=== PATIENT | male | born 1950 | race Caucasian/White ===

== ENCOUNTER 2020-12-29 07:59 | Day surgery (SDC) | payer MEDICARE, BC ==
[~2020-12-29] VITALS: Ht 177.8 cm; Wt 107.8 kg
[~2020-12-29 07:59] MED LIST: ALEVE 220MG220 MG PO; ATACAND4 MG PO; ELIQUIS 5MG PO; FERROUS SU325 MG/TAB PO; FOLIC ACID 40400 MCG PO; LEXAPRO20 MG PO; MOTRIN 200200 MG/TAB PO; NASACORT OTC NS; NORCO 325 MG-51 TAB PO; ROXICODONE 55 MG/TAB PO; SENOKOT S 50 MG1 TAB PO; TYLENOL COLD M240 M1 PO; TYLENOL PM EXTR1 TA1 PO; VITAMIN C500 MG PO; WELLBUTRIN XL300 M1 PO
[2020-12-29] MEDS ORDERED: NORCO 325 MG-51 TAB PO ×2 (08:52→10:22)
[2020-12-29] MEDS ORDERED: FLONASEALLERGY NS (08:53)
[2020-12-29] MEDS ORDERED: VITAMIN D31000 I1 PO (08:54)
[2020-12-29] MEDS ORDERED: SINGULAIR 110 MG/TAB PO (08:57)
--- NOTE | 2020-12-29 09:04 | NUR ---
TO RM 2 - CALL LIGHT IN REACH
[2020-12-29 10:25] VITALS: BP 110/73; PULSE 70; TEMP 98.2
--- NOTE | 2020-12-29 10:25 | NUR ---
TO RM 2 PER CART FROM PACU FOLLOWING A KNEE MANIPULATION. TALKING WITH STAFF AND TEXTING . DENIES PAIN OR DISCOMFORT. DENIES N/V.
[2020-12-29 10:40] VITALS: BP 110/66; PULSE 64
--- NOTE | 2020-12-29 10:40 | NUR ---
RECEIVED APPLE JUICE AND MUFFIN. SITTING UP EATING AND TEXTING . ICE OVER L KNEE .
[2020-12-29 10:55] VITALS: BP 103/55; PULSE 66
--- NOTE | 2020-12-29 10:55 | NUR ---
ATE 100% AND TOLERATED WELL.
--- NOTE | 2020-12-29 11:10 | NUR ---
RECEIVED DISCHARGE INSTRUCTIONS AND VERBALIZED UNDERSTANING DISCONTINUED IV AND INT- CATHETER INTACT. PATIENT GETTING DRESSED.
--- NOTE | 2020-12-29 11:30 | NUR ---
AMBULTED OUT ACCOMPANIED BY NURSING STAFF TO PRIVATE CAR IN CARE OF .
== END 2020-12-29 11:35 | disposition home or self-care (01) ==
LOC: SDCO 07:59
DX: M25.60 Stiffness of unspecified joint, not elsewhere classified (principal); Z96.652 Presence of left artificial knee joint; Z86.73 Personal history of transient ischemic attack (TIA), and cerebral infarction without residual deficits; I48.92 Unspecified atrial flutter; M19.90 Unspecified osteoarthritis, unspecified site; Z91.011 Allergy to milk products; Z79.01 Long term (current) use of anticoagulants; Z88.8 Allergy status to other drugs, medicaments and biological substances
CPT/HCPCS: J1885; J2405; J2704; J3010; J7120

== ENCOUNTER 2021-10-05 12:12 | Inpatient (IN) | payer MEDICARE, BC ==
[~2021-10-05] VITALS: Ht 177.8 cm; Wt 102.3 kg
[2021-10-05] VITALS (7 sets, daily range): BP systolic 97–124; BP diastolic 66–75; PULSE 61–72; TEMP 97.6–98.6
[~2021-10-05 12:12] MED LIST changes: +FLONASEALLERGY NS; +SINGULAIR 110 MG/TAB PO; +VITAMIN D31000 I1 PO
[2021-10-05 13:02] LABS: BASO % 0.3 % (0.0-2.0); EOS % 0.1 % (0-4.0); GRAN # 8.6 K/mm3 (1.4-6.5); GRAN % 76.8 % (42.2-75.2); HEMATOCRIT 50.5 % (42.0-52.0); HEMOGLOBIN 17.4 g/dl (13.5-18.0); LYMPH # 1.4 K/mm3 (1.2-3.4); LYMPH % 12.8 % (20.0-51.0); MEAN CELL VOLUME 100 fl (80.0-100.0); MEAN CORPUSCULAR HEMOGLOBIN 34 pg (27.0-31.0); MEAN CORPUSCULAR HGB CONC 35 g/dl (33.0-37.0); MEAN PLATELET VOLUME 9.4 fl (7.4-10.4); MONO % 8.9 % (1.7-9.3); PLATELET COUNT 207 K/mm3 (130-400); RED BLOOD COUNT 5.06 M/mm3 (4.20-5.60); REDCELL DISTRIBUTION WIDTH-CV 12.3 % (11.5-14.5)
[2021-10-05 13:18] LABS: ALANINE AMINOTRANSFERASE 31 U/L (0-55); ALBUMIN 3.7 gm/dL (3.4-4.8); ALKALINE PHOSPHATASE 53 U/L (40-150); ANION GAP 10 mmol/L (7-16); AST,SGOT 15 U/L (5-34); BILIRUBIN,TOTAL 1.7 mg/dL (0.2-1.2); BLOOD UREA NITROGEN 24 mg/dL (8-26); CALCIUM 8.9 mg/dL (8.4-10.2); CARBON DIOXIDE 20 mmol/L (23-31); CHLORIDE 111 mmol/L (98-107); CREATININE, serum 1.01 mg/dL (0.72-1.25); GLUCOSE 106 mg/dL (70-99); POTASSIUM 4.4 mmol/L (3.5-4.5); SODIUM 141 mmol/L (136-145); TOTAL PROTEIN 6.5 gm/dL (6.2-8.1)
[2021-10-05 13:26] LABS: TROPONIN-I < 0.010 ng/mL (0.00-0.033)
[2021-10-05] MEDS ORDERED: FLOMAX 0.40.4 MG/CAP PO (13:38)
[2021-10-05] MEDS ORDERED: ASPIRIN 81M81 MG/TA2 PO (13:39)
--- NOTE | 2021-10-05 18:02 | NUR ---
PT RECEIVED ON FLOOR. POST OP VITAL SIGNS INITIATED. ADMISSION ASSESSMENT, ALLERGIES, MED REC, AND PHARMACY REVIEWED/COMPLETED. PT ALERT AND ORIENTED. PT HAS CLEAR LUNGS TO AUSCULTATION. 3+ PITTING EDEMA NOTED IN BILATERAL LOWER EXTREMITIES. SOME GENERALIZED BRUISING NOTED OVER BILATERAL ARMS. PT DRESSING CLEAN, DRY, INTACT. CAP REFILL <3S. PT FEET COOL TO TOUCH, PULSES 2+ BILATERALLY. PT ENDOSCOPY TECHNICAN EQUAL, RADIAL PULSE 2+ BILATERALLY. PT AT BEDSIDE, SECURITY CODE GIVEN FOR FUTURE UPDATES.
--- NOTE | 2021-10-05 18:04 | NUR ---
STATES CANNOT GET FLU VACCINE UNTIL APPROXIMATELY MONDAY. HAD B-12, DEXAMETHASONE, CANTALOG INJECTIONS IN [place] AND WAS INSTRUCTED TO WAIT 7 DAYS FOR FLU AND 10 DAYS FOR COVID BOOSTER. INJECTIONS RECEIVED September.
--- NOTE | 2021-10-05 23:47 | NUR ---
ALERT AND OX4. DENIES SOA, CHEST PAIN OR DIZZY. SOTOLO INITATION- EKG ORDERED AFTER 1ST DOSE GIVEN. NO SIDE EFFECTS REPORTED. TELE-NSR. RT AC FLUSHED. SCD FOR VTE. RT ANKLE EDEMA ELEVATED. DSG TO LT UPPER CHEST, C/D/I. CALL LIGHT WI REACH.
[2021-10-06 00:10] VITALS: BP 92/62; PULSE 58; TEMP 97.5
[2021-10-06 04:38] VITALS: BP 96/61; PULSE 63; TEMP 98
--- NOTE | 2021-10-06 05:58 | NUR ---
RESTED THROUGH THE NIGHT WITHOUT INCIDENT. REMAINS TO BE NSR ON TELE. NEEDS MET.
[2021-10-06 07:39] LABS: BASO % 0.2 % (0.0-2.0); EOS % 0.2 % (0-4.0); GRAN # 7.8 K/mm3 (1.4-6.5); GRAN % 78.2 % (42.2-75.2); HEMOGLOBIN 15.3 g/dl (13.5-18.0); LYMPH # 1.2 K/mm3 (1.2-3.4); LYMPH % 12.4 % (20.0-51.0); MEAN CELL VOLUME 101 fl (80.0-100.0); MEAN CORPUSCULAR HEMOGLOBIN 34 pg (27.0-31.0); MEAN CORPUSCULAR HGB CONC 34 g/dl (33.0-37.0); MEAN PLATELET VOLUME 9.5 fl (7.4-10.4); MONO # 0.8 K/mm3 (0.1-0.6); MONO % 8.1 % (1.7-9.3); PLATELET COUNT 191 K/mm3 (130-400); RED BLOOD COUNT 4.46 M/mm3 (4.20-5.60); REDCELL DISTRIBUTION WIDTH-CV 12.5 % (11.5-14.5)
[2021-10-06 08:00] LABS: ALBUMIN 3.2 gm/dL (3.4-4.8); BILIRUBIN,TOTAL 2.1 mg/dL (0.2-1.2); CALCIUM 8.4 mg/dL (8.4-10.2); CREATININE, serum 0.86 mg/dL (0.72-1.25); POTASSIUM 4.3 mmol/L (3.5-4.5); TOTAL PROTEIN 5.6 gm/dL (6.2-8.1)
[2021-10-06 08:47] VITALS: BP 119/61; PULSE 63; TEMP 97.4
--- NOTE | 2021-10-06 10:48 | NUR ---
PT ALERT AND ORIENTED. PT ABLE TO AMBULATE INDEPENDENTLY IN ROOM. PT HAS DIMINISHED LUNG SOUNDS AUSCULTATED IN LEFT LOWER LOBE. PT HAS ACTIVE BOWEL SOUNDS. DENIES PAIN AT THIS TIME. PT DRESSING ON CHEST CLEAN, DRY, INTACT. PT HAS 2+ PITTING EDEMA, PT STATES BETTER THAN YESTERDAY. PT PRESENT AT BEDSIDE. PT SOTALOL GIVEN PER CARDIOLOGY AND HOSPITALIST ORDERS. SOCKS PROVIDED TO PT, NO OTHER NEEDS EXPRESSED AT THIS TIME.
--- NOTE | 2021-10-06 10:58 | NUR ---
Boss Miner met with patient to discuss discharge planning. Patient lives in [place] with his , Viviana (ph#[phone]) who is at bedside. Patient sees Dr. Sheriff for primary care and obtains medications from [facility] in [place] with no difficulties. Patient uses a CPAP and no other DME. Patient reports independence with ADLS and plans to return home upon discharge. Patient has Advance Directives in EMR which designate his , Viviana. PT/OT ordered for patient. Discharge Plan: Home
[2021-10-06 11:53] VITALS: BP 114/62; PULSE 56; TEMP 98
--- NOTE | 2021-10-06 12:27 | NUR ---
Initial visit; Patient and his thanked Head Animal Trainer for looking in on them and offering God's blessings to Olegario, visiting and wishing him well and God's blessings.
[2021-10-06 16:00] VITALS: BP 93/68; PULSE 55; TEMP 98.1
--- NOTE | 2021-10-06 17:21 | NUR ---
PT CONTINUING ON PLAN OF CARE. PT HAD UNEVENTFUL DAY, ABLE TO AMBULATE INDEPENDENTLY. VISITED THIS SHIFT. NO SIGNIFICANT CHANGES NOTED IN PATIENT STATUS THIS SHIFT. PT DENIED PAIN THIS SHIFT.
[2021-10-06 21:06] VITALS: BP 118/65; PULSE 55; TEMP 98
[2021-10-07 01:06] VITALS: BP 98/60; PULSE 51; TEMP 97.9
[2021-10-07 04:19] VITALS: BP 98/60; PULSE 50; TEMP 97.9
--- NOTE | 2021-10-07 05:47 | NUR ---
RESTED THROUGH THE NIGHT WITHOUTINCIDENT. NO CHEST PAIN OR S/S REPORTED OF NEW MED SOTOLOL THAT WAS STARTED THIS WILL BE DAY 3. NEEDS MET.
[2021-10-07 06:42] LABS: BASO % 0.1 % (0.0-2.0); EOS % 0.3 % (0-4.0); GRAN # 7.5 K/mm3 (1.4-6.5); GRAN % 76.2 % (42.2-75.2); HEMATOCRIT 42.7 % (42.0-52.0); HEMOGLOBIN 14.4 g/dl (13.5-18.0); LYMPH # 1.4 K/mm3 (1.2-3.4); LYMPH % 14.2 % (20.0-51.0); MEAN CELL VOLUME 101 fl (80.0-100.0); MEAN CORPUSCULAR HEMOGLOBIN 34 pg (27.0-31.0); MEAN CORPUSCULAR HGB CONC 34 g/dl (33.0-37.0); MEAN PLATELET VOLUME 9.3 fl (7.4-10.4); MONO # 0.8 K/mm3 (0.1-0.6); MONO % 8.3 % (1.7-9.3); PLATELET COUNT 157 K/mm3 (130-400); RED BLOOD COUNT 4.22 M/mm3 (4.20-5.60); REDCELL DISTRIBUTION WIDTH-CV 12.4 % (11.5-14.5)
[2021-10-07 06:52] LABS: CALCIUM 8.8 mg/dL (8.4-10.2); CREATININE, serum 1.02 mg/dL (0.72-1.25); POTASSIUM 4.5 mmol/L (3.5-4.5)
[2021-10-07] MEDS ORDERED: BETAPACE 80MG80 MG PO (07:14)
[2021-10-07 07:48] VITALS: BP 106/63; PULSE 46; TEMP 97.7
[2021-10-07 08:16] VITALS: PULSE 57
--- NOTE | 2021-10-07 08:31 | NUR ---
Pt assessment complete. Pt is sitting up in bed upon entry. He is A/O x4. His breathing is even and unlabored on RA. Pt denies any pain. No SOB. Reports having several episodes of diarrhea through the night, but states he had a burrito last night. He denies any needs at this time. Call light within reach.
--- NOTE | 2021-10-07 11:28 | NUR ---
Manufacturing Sr Engineer attended clinical rounds and patient to discharge home today. No additional needs at this time.
--- NOTE | 2021-10-07 11:30 | NUR ---
Discharge paperwork and instructions reviewed with patient. All questions answered at this time. IV to RAC dc'd catheter tip intact. Wheeled out of facility at this time by staff member.
== END 2021-10-07 11:46 | disposition home or self-care (01) | DRG 261 ==
LOC: COL.ER 12:12 → MEDICAL 14:55
PROVIDERS: Nurse Practitioner; Physician Assistant; ADMIT Internal Medicine
PROC: 0JH632Z Insertion of Monitoring Device into Chest Subcutaneous Tissue and Fascia, Percutaneous Approach (ICD-10-PCS; principal; 2021-10-05)
PROC: 0JPT32Z Removal of Monitoring Device from Trunk Subcutaneous Tissue and Fascia, Percutaneous Approach (ICD-10-PCS; 2021-10-05)
PROC: 5A2204Z Restoration of Cardiac Rhythm, Single (ICD-10-PCS; 2021-10-05)
PROC: B24BZZ4 Ultrasonography of Heart with Aorta, Transesophageal (ICD-10-PCS; 2021-10-05)
DX: I48.0 Paroxysmal atrial fibrillation (principal); E87.2 Acidosis; I10 Essential (primary) hypertension; I48.92 Unspecified atrial flutter; N40.0 Benign prostatic hyperplasia without lower urinary tract symptoms; D72.829 Elevated white blood cell count, unspecified; G47.33 Obstructive sleep apnea (adult) (pediatric); I95.9 Hypotension, unspecified; L30.1 Dyshidrosis [pompholyx]; B35.3 Tinea pedis; Z96.653 Presence of artificial knee joint, bilateral; Z96.641 Presence of right artificial hip joint; Z79.82 Long term (current) use of aspirin; Z85.72 Personal history of non-Hodgkin lymphomas; Z86.73 Personal history of transient ischemic attack (TIA), and cerebral infarction without residual deficits
CPT/HCPCS: 99223-AI; 99232-AI; 99239; C1764

== ENCOUNTER 2021-12-29 07:20 | Outpatient (CLI) | payer MEDICARE, BC ==
[~2021-12-29] VITALS: Ht 177.8 cm; Wt 102.0 kg
[~2021-12-29 07:20] MED LIST changes: +ASPIRIN 81M81 MG/TA2 PO; +BETAPACE 80MG80 MG PO; +FLOMAX 0.40.4 MG/CAP PO
[2021-12-29] MEDS ORDERED: PLAVIX 75MG TAB75 MG PO (07:56)
[2021-12-29 08:34] LABS: BASO # 0.1 K/mm3 (0.0-0.2); BASO % 0.8 % (0.0-2.0); EOS # 0.2 K/mm3 (0.0-0.7); GRAN # 3.8 K/mm3 (1.4-6.5); GRAN % 59.1 % (42.2-75.2); HEMATOCRIT 38.8 % (42.0-52.0); HEMOGLOBIN 13.5 g/dl (13.5-18.0); LYMPH # 1.6 K/mm3 (1.2-3.4); LYMPH % 25.4 % (20.0-51.0); MEAN CELL VOLUME 100 fl (80.0-100.0); MEAN CORPUSCULAR HEMOGLOBIN 35 pg (27-31); MEAN CORPUSCULAR HGB CONC 35 g/dl (33.0-37.0); MEAN PLATELET VOLUME 9.3 fl (7.4-10.4); MONO # 0.7 K/mm3 (0.1-0.6); MONO % 11.4 % (1.7-9.3); PLATELET COUNT 127 K/mm3 (130-400); REDCELL DISTRIBUTION WIDTH-CV 13.4 % (11.5-14.5)
[2021-12-29 08:41] LABS: INR 1.2 (0.8-3.0); PROTHROMBIN TIME 12.8 SECONDS (9.7-12.8)
[2021-12-29 08:42] VITALS: BP 108/75; PULSE 51; TEMP 97.4
[2021-12-29 08:49] LABS: CALCIUM 8.5 mg/dL (8.4-10.2); CREATININE, serum 0.93 mg/dL (0.72-1.25); POTASSIUM 3.9 mmol/L (3.5-4.5)
[2021-12-29 09:30] VITALS: BP 102/59; PULSE 49
--- NOTE | 2021-12-29 09:30 | NUR ---
report recieved, Pt is sitting up in bed, awake and alert, has no c/o. in room, takes sprite.
[2021-12-29 09:45] VITALS: BP 108/62; PULSE 56
[2021-12-29 10:00] VITALS: BP 121/70; PULSE 56
--- NOTE | 2021-12-29 10:00 | NUR ---
Dr Brewer into talk with pt concerning med changes and results
[2021-12-29] MEDS ORDERED: BETAPACE 120MG120 MG PO (10:09)
[2021-12-29 10:15] VITALS: BP 129/70; PULSE 55
--- NOTE | 2021-12-29 10:15 | NUR ---
reviewed discharge inst. with pt on moderate sedation, activity and followup. Also for new dose RX to be picked up and next appt with verbal understanding. iv DC'd intact, pt up to b/r and dressed, discharged at 1025 via w/c to car with
== END 2021-12-29 10:25 | disposition home or self-care (01) ==
LOC: COL.RAD 07:20
PROVIDERS: Internal Medicine Cardiovascular Disease
DX: I08.0 Rheumatic disorders of both mitral and aortic valves (principal)
CPT/HCPCS: J2370; J2704

== ENCOUNTER 2022-02-07 11:41 | Inpatient (IN) | payer MEDICARE, BC ==
[2022-02-07] VITALS (14 sets, daily range): BP systolic 102–130; BP diastolic 58–94; PULSE 45–86; TEMP 97.6–98.3
[~2022-02-07] VITALS: Ht 177.8 cm; Wt 103.3 kg
[~2022-02-07 11:41] MED LIST changes: +BETAPACE 120MG120 MG PO; +PLAVIX 75MG TAB75 MG PO
[2022-02-07 12:32] LABS: INR 1.1 (0.8-3.0); PROTHROMBIN TIME 12.4 SECONDS (9.7-12.8)
[2022-02-07 12:37] LABS: HEMATOCRIT 42.9 % (42.0-52.0); HEMOGLOBIN 14.7 g/dl (13.5-18.0); MEAN CELL VOLUME 101 fl (80.0-100.0); MEAN CORPUSCULAR HEMOGLOBIN 34 pg (27-31); MEAN CORPUSCULAR HGB CONC 34 g/dl (33.0-37.0); MEAN PLATELET VOLUME 9.4 fl (7.4-10.4); PLATELET COUNT 142 K/mm3 (130-400); RED BLOOD COUNT 4.27 M/mm3 (4.20-5.60); REDCELL DISTRIBUTION WIDTH-CV 12.3 % (11.5-14.5)
[2022-02-07] MEDS ORDERED: BETAPACE 80MG80 MG PO (12:37)
[2022-02-07] MEDS ORDERED: ATACAND4 MG PO (12:38)
[2022-02-07] MEDS ORDERED: FLOMAX 0.40.4 MG/CAP PO (12:38)
[2022-02-07 12:43] LABS: CALCIUM 8.4 mg/dL (8.4-10.2); CREATININE, serum 1.02 mg/dL (0.72-1.25); POTASSIUM 3.9 mmol/L (3.5-4.5)
--- NOTE | 2022-02-07 14:15 | NUR ---
Pt to procedure.
--- NOTE | 2022-02-07 15:54 | NUR ---
Patient alert and oriented, no reports of pain.Please see Merge for documation, medication administration and documentation, vitals...etc andleve of sedation.
--- NOTE | 2022-02-07 16:53 | NUR ---
PT ADMITTED TO UNIT. ADMISSION INTAKE AND ASSESSMENT COMPLETED. PT ORIENTED TO ROOM. REPORTS 02/03 TENDERNESS TO L CHEST. BOTH DRESSING SITES C/D/I. REVIEWED POC. WILL CONTINUE TO MONITOR.
[2022-02-08 04:23] VITALS: BP 112/63; PULSE 61; TEMP 97.9
--- NOTE | 2022-02-08 05:30 | NUR ---
ASSESSMENT COMPLETE FOR THIS SHIFT. PT RESTING IN BED WITH HIS BY HIS SIDE. PT DENIED CHEST PAIN, PALPITATIONS, N,V,D, SOB OR DIZZINESS. PT LATER COMPLAINED OF BACK PAIN. PT GIVEN TYLENOL FOR PAIN. PAIN RELIEVED PER PT. PT NPO AT MIDNIGHT. PT EXPRESSED NO OTHER NEEDS AT THIS TIME. CALL LIGHT WITHIN REACH.
[2022-02-08 07:53] VITALS: BP 117/66; PULSE 60; TEMP 97.2
--- NOTE | 2022-02-08 08:54 | NUR ---
PT RESTING IN BED. MORNING MEDICATIONS GIVEN. SHIFT ASSESSMENT COMPLETED. ICD DRESSSING TO L CHEST C/D/I, PT REPORTS MILD TENDERNESS TO THE SITE. LOOP RECORDER EXPLANT DRESSING HAS A SCANT AMOUNT OF DRAINAGE. DENIES ANY CHEST PAIN OR SOB OVERNIGHT. IS EAGER TO D/C HOME. UPDATED PT ON POC. WILL CONTINUE TO MONITOR.
--- NOTE | 2022-02-08 11:25 | NUR ---
Dairy Machine Operator Farmworker met with patient and patient's , Viviana (ph#[phone]) to discuss discharge planning. Patient lives in [place] and sees Dr. Sheriff for primary care. Patient obtains medications from [facility] and uses a CPAP at home. Patient is independent with ADLS and plans to return home at time of discharge. Patient reports that Viviana is his DPOA-HC. SW and RN-YUE met with patient to review LR form as he was made inpatient status, then downgraded to outpatient status. Patient verbalized understanding and provided signature. Discharge Plan: Home
[2022-02-08 11:30] VITALS: BP 112/73; PULSE 61; TEMP 97.6
[2022-02-08] MEDS ORDERED: CEPHALEXIN500 M1 PO (12:49)
[2022-02-08] MEDS ORDERED: BETAPACE 120MG120 MG PO (12:50)
[2022-02-08] MEDS ORDERED: PRINIVIL2.5 MG PO (12:53)
--- NOTE | 2022-02-08 13:36 | NUR ---
First visit from the physicist nuclear. No needs right now.
--- NOTE | 2022-02-08 13:39 | NUR ---
IV D/C. DISCHARGE INSTRUCTIONS GIVEN, ALL QUESTIONS ANSWERED. ESCORTED PT OUT. WILL D/C FROM SYSTEM.
== END 2022-02-08 13:40 | disposition home or self-care (01) | DRG 227 ==
LOC: COL.CAR 11:41 → MEDICAL 17:46
PROVIDERS: ADMIT Internal Medicine Cardiovascular Disease
PROC: 0JH608Z Insertion of Defibrillator Generator into Chest Subcutaneous Tissue and Fascia, Open Approach (ICD-10-PCS; principal; 2022-02-07)
PROC: 02H60KZ Insertion of Defibrillator Lead into Right Atrium, Open Approach (ICD-10-PCS; 2022-02-07)
DX: I42.0 Dilated cardiomyopathy (principal); I50.22 Chronic systolic (congestive) heart failure; I11.0 Hypertensive heart disease with heart failure; I48.0 Paroxysmal atrial fibrillation; G47.33 Obstructive sleep apnea (adult) (pediatric); Z23 Encounter for immunization
CPT/HCPCS: J0282; J0690; J2250; J3010; J7040; Q9967